=== PATIENT | male | born 1965 | race Caucasian/White ===

== ENCOUNTER 2017-02-14 16:03 | Emergency (ER) | payer OTHER, BC ==
[2017-02-14 16:12] VITALS: BP 160/91; PULSE 57; TEMP 98; BMI 34.4
--- NOTE | 2017-02-14 16:45 | PDOC ---
History of Present Illness - General Chief Complaint: Injury Stated Complaint: LACERATION Time Seen by Provider: 02/14/17 16:19 History Source: Patient Exam Limitations: No Limitations - History of Present Illness Initial Comments: 02/14/17 16:51 While walking and reading some paperwork, patient collided with a closed fence striking his upper lip, forehead inverting his teeth. Patient complains of upper lip, upper dentition pain, some mild neck tenderness from whiplash type injury but no LOC, no bleeding from his nose or ears, no bleeding from teeth and no through and through lacerations. Denies dizziness, headache, or any knowledge of loosened teeth. Occurred: reports: just prior to arrival Pain Location: reports: face, head Method of Injury: Yes: direct blow Modifying Factors: improves with: None Associated Symptoms (Fall): denies symptoms Past History - Travel Traveled outside of the country in the last 30 days: No Close contact w/someone who was outside of country & ill: No - Past Medical History Allergies/Adverse Reactions: Allergies Allergy/AdvReac Type Severity Reaction Status Date / Time No Known Allergies Allergy Verified 02/14/17 16:12 Home Medications: Ambulatory Orders Fexofenadine HCl [[facility]son Allergy] 180 mg PO DAILY 02/14/17 HTN: Yes Hypercholesterolemia: Yes - Psycho/Social/Smoking Cessation Hx Anxiety: No Suicidal Ideation: No Smoking History: Never smoked Hx Alcohol Use: Yes (social) Drug/Substance Use Hx: No Substance Use Type: None Trauma Specific PMHX - Complaint Specific PMHX Back Injury: No Neck Injury: No Review of Systems - Review of Systems Able to Perform ROS?: Yes Is the patient limited Telugu proficient: Yes Constitutional: Yes: Symptoms Reported, See HPI, Malaise HEENTM: Yes: Symptoms Reported Respiratory: No: Symptoms reported Musculoskeletal: Yes: See HPI, Other (mild neck tenderness). No: Symptoms Reported Integumentary: Yes: Symptoms Reported, See HPI, Bruising Neurological: Yes: Symptoms reported, See HPI, Headache All Other Systems: Reviewed and Negative *Physical Exam - Vital Signs Last Vital Signs Temp Pulse Resp BP Pulse Ox 98.0 F 57 L 20 160/91 98 02/14/17 16:09 02/14/17 16:09 02/14/17 16:09 02/14/17 16:09 02/14/17 16:09 - Physical Exam General Appearance: Yes: Nourished, Appropriately Dressed, Apparent Distress, Mild Distress HEENT: positive: PETER, Normal ENT Inspection (no hemotympanum, no drainage from nose or ears, no evidence of skull fracture), Other (dentition intact without redness, or bleeding noted at insertion sites. Nothing loose). negative: Rhinorrhea Neck: positive: Supple, Other (no C-spine tenderness, has some mild tenderness noted to the left sternocleidomastoid and neck musculature, full range of motion without crepitus or step-offs to bony) Respiratory/Chest: positive: Lungs Clear Extremity: positive: Normal Inspection Integumentary: positive: Normal Color, Dry, Warm, Bruising (superficial abrasion to upper right lip, which is not through and through with some soft tissue swelling to upper lip and contusion and injured gingival surface. There is no laceration on inner aspect. Has superficial abrasion to forehead without crepitus or step-offs, no active bleeding.) Neurologic: positive: clinic nurse II-XII NML intact, Fully Oriented, Alert, Normal Mood/ Affect, Normal Response, Motor Strength 5/5 Progress Note - Progress Note Progress Note: Facial contusion and superficial abrasions. We'll treat conservatively, tetanus/ diphtheria/pertussis booster updated today *DC/Admit/Observation/Transfer Diagnosis at time of Disposition: Facial contusion Qualifiers: Encounter type: initial encounter Qualified Code(s): S00.83XA - Contusion of other part of head, initial encounter - Discharge Dispostion Disposition: HOME Condition at time of disposition: Stable Admit: No - Patient Instructions Printed Discharge Instructions: DI for Contusion Additional Instructions: Keep wound clean and dry Avoid strenuous activity/exercise to create a hot or sweaty environment until healed Reapply bacitracin ointment 2 times a day until healed Call and see dentist for thorough dental evaluation Your tetanus/diphtheria./Pertussis booster was updated today May use Tylenol or Motrin for pain relief Return immediately to emergency department for redness, swelling, pain, or signs of infection
[2017-02-14] MEDS ORDERED: DIPHTH,PERTUSS(ACELL),TET 0.5 ML DISP.SYRIN IM ONE (16:46)
== END 2017-02-14 17:11 | disposition home or self-care (01) ==
LOC: JERFT 16:03
PROC: 3E0234Z Introduction of Serum, Toxoid and Vaccine into Muscle, Percutaneous Approach (ICD-10-PCS; principal; 2017-02-14)
DX: S00.83XA Contusion of other part of head, initial encounter (principal); W22.8XXA Striking against or struck by other objects, initial encounter; Y93.89 Activity, other specified; Y92.9 Unspecified place or not applicable; I10 Essential (primary) hypertension
CPT/HCPCS: 90715; 99281-25

== ENCOUNTER 2018-08-13 12:13 | Emergency (ER) | payer OTHER, BC ==
[2018-08-13 12:28] VITALS: BP 127/75; PULSE 57; TEMP 98.2; BMI 35.9
[2018-08-13] MEDS ORDERED: IBUPROFEN 600 MG TABLET (FP) PO ONE ×2 (13:07→13:08)
--- NOTE | 2018-08-13 13:07 | PDOC ---
History of Present Illness - General Chief Complaint: Pain, Acute Stated Complaint: KNEE PAIN Time Seen by Provider: 08/13/18 12:42 History Source: Patient Exam Limitations: No Limitations - History of Present Illness Initial Comments: 08/13/18 13:08 Patient states that this morning twisted his right knee and felt a pop the medial aspect. Denies instability, but feels is tender in the inferior aspect, no numbness or tingling to foot, no other injury. Has never sprained his knee in the past. 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 Occurred: reports: just prior to arrival, this morning Severity: reports: mild, moderate Pain Location: reports: lower extremity (right knee) Past History - Travel Traveled outside of the country in the last 30 days: No Close contact w/someone who was outside of country & ill: No - Past Medical History Allergies/Adverse Reactions: Allergies Allergy/AdvReac Type Severity Reaction Status Date / Time No Known Allergies Allergy Verified 08/13/18 12:26 Home Medications: Ambulatory Orders Unobtainable 08/13/18 COPD: No CHF: No HTN: Yes Hypercholesterolemia: Yes - Suicide/Smoking/Psychosocial Hx Smoking History: Never smoked Have you smoked in the past 12 months: No Information on smoking cessation initiated: No Hx Alcohol Use: No Drug/Substance Use Hx: No Substance Use Type: None Trauma Specific PMHX - Complaint Specific PMHX Back Injury: No Neck Injury: No Review of Systems - Review of Systems Able to Perform ROS?: Yes Is the patient limited Pashto proficient: Yes Constitutional: Yes: See HPI. No: Symptoms Reported, Malaise HEENTM: No: Symptoms Reported Respiratory: No: Symptoms reported Musculoskeletal: Yes: Symptoms Reported, See HPI, Joint Pain, Joint Swelling ( right knee) All Other Systems: Reviewed and Negative *Physical Exam - Vital Signs Last Vital Signs Temp Pulse Resp BP Pulse Ox 98.2 F 57 L 16 127/75 100 08/13/18 12:26 08/13/18 12:26 08/13/18 12:26 08/13/18 12:26 08/13/18 12:26 - Physical Exam General Appearance: Yes: Nourished, Appropriately Dressed, Mild Distress HEENT: positive: PETER, Normal ENT Inspection, Normal Voice, TMs Normal, Pharynx Normal Neck: positive: Tender, Supple Respiratory/Chest: positive: Lungs Clear Extremity: positive: Normal Capillary Refill, Tender, Swelling. negative: Normal Inspection, Normal Range of Motion (range of motion mildly limited to complete flexion and extension secondary to tenderness primarily to the medial aspect of his right knee. No lateral tenderness, no posterior fossa tenderness, no obvious laxity but difficult to examine due to patient's guarding. Patella is mobile without crepitus or step-off swelling tissue knee capsule. No anterior tibial tenderness. Is ambulatory with mild limp. Neurovascular intact to foot. Pain is reproduced to the inferior insertion site of the MCL of right knee) Integumentary: positive: Normal Color, Dry, Warm Neurologic: positive: financial services associate II-XII NML intact, Fully Oriented, Alert, Normal Mood/ Affect, Normal Response, Motor Strength 5/5 Moderate Sedation - Procedure Monitoring Vital Signs: Procedure Monitoring Vital Signs Temperature 98.2 F 08/13/18 12:26 Pulse Rate 57 L 08/13/18 12:26 Respiratory Rate 16 08/13/18 12:26 Blood Pressure 127/75 08/13/18 12:26 O2 Sat by Pulse Oximetry (%) 100 08/13/18 12:26 Progress Note - Progress Note Progress Note: MCL sprain, cecil wrap provided, will follow-up with *DC/Admit/Observation/Transfer Diagnosis at time of Disposition: Knee MCL sprain Qualifiers: Encounter type: initial encounter Laterality: left Qualified Code(s): S83.412A - Sprain of medial collateral ligament of left knee, initial encounter - Discharge Dispostion Disposition: HOME Condition at time of disposition: Stable Decision to Admit order: No - Referrals Referrals: Omkar Cantrell MD [Staff Physician] - - Patient Instructions Printed Discharge Instructions: DI for Knee Sprain Additional Instructions: Rest, ice to area on and off for 15 minutes 4-6 times a day Avoid heavy lifting or exercise until pain and swelling is resolved or until further directed Keep area highly elevated to reduce swelling Use splints/Cecil wrap as directed Followup with orthopedist in one to 2 days if not improving, if significantly improved may wait one week for followup with orthopedist May use ibuprofen every 6 hours as needed for pain - Post Discharge Activity Forms/Work/School Notes: Back to Work
== END 2018-08-13 13:25 | disposition home or self-care (01) ==
LOC: JERFT 12:13
DX: S83.412A Sprain of medial collateral ligament of left knee, initial encounter (principal); X50.1XXA Overexertion from prolonged static or awkward postures, initial encounter; Y93.89 Activity, other specified; Y92.89 Other specified places as the place of occurrence of the external cause; Y99.0 Civilian activity done for income or pay
CPT/HCPCS: 99281-25

== ENCOUNTER 2020-08-27 20:54 | Emergency (ER) | payer OTHER ==
[2020-08-27 21:03] VITALS: BP 151/90; PULSE 62; TEMP 98.7; BMI 36.0
[2020-08-27] MEDS ORDERED: NAPROXEN 500 MG TABLET PO ONE (21:36)
[2020-08-27] MEDS ORDERED: NAPROXEN 500 MG TABLET ONE ×2 (21:41→21:42)
== END 2020-08-27 21:45 | disposition home or self-care (01) ==
LOC: FER 20:54
DX: M54.5 Low back pain (principal); M62.838 Other muscle spasm
CPT/HCPCS: 99284-25

== ENCOUNTER 2021-08-27 12:20 | Emergency (ER) | payer BC, OTHER ==
[2021-08-27 12:46] VITALS: BP 151/76; PULSE 69; TEMP 98; BMI 30.9
== END 2021-08-27 14:18 | disposition home or self-care (01) ==
LOC: FER 12:20
PROC: 0HQFXZZ Repair Right Hand Skin, External Approach (ICD-10-PCS; principal; 2021-08-27)
DX: S61.411A Laceration without foreign body of right hand, initial encounter (principal); W26.8XXA Contact with other sharp object(s), not elsewhere classified, initial encounter
CPT/HCPCS: 99282-25

== ENCOUNTER 2021-09-06 12:18 | Emergency (ER) | payer BC ==
[2021-09-06 12:28] VITALS: BP 127/57; PULSE 53; TEMP 98; BMI 30.8
== END 2021-09-06 12:52 | disposition home or self-care (01) ==
LOC: FER 12:18
DX: Z48.02 Encounter for removal of sutures (principal)
CPT/HCPCS: 99281-25